=== PATIENT | female | born 1960 | race Caucasian/White ===

== ENCOUNTER 2019-05-24 06:59 | Inpatient (IN) | payer MEDICAID, MEDICARE ==
[~2019-05-24] VITALS: Ht 162.6 cm; Wt 65.0 kg
[2019-05-24] MEDS ORDERED: SODIUM CHLORIDE 0.9% 1,000 ML IV ONE (07:20)
--- NOTE | 2019-05-24 07:20 | NUR ---
PT BIB ED FROM [place]. PT WAS AT [facility] YESTERDAY AND WENT AMA. CALLED [facility] AT 0200 THIS MORNING AFTER FEELING WORSE. PT HAD LACTIC OF 2.8 YESTERDAY, WAS FOUND TO BE 4.1 TODAY. [facility] STATES PT DIAGNOSED WITH SEPTIC C-DIFF AT [facility]. PT STATES SHE IS WEAK, HAS N/V/D FOR THE PAST FEW DAYS. PT HAS HX C-DIFF 3 WEEKS AGO. PT STATES SHE HAS PAIN IN HER ABDOMEN RADIATING TO HER BACK THAT IS 8-9/10 NOW. AT BEDSIDE TO EVALUATE PT. PT TACHYCARDIC. BP 106/55 RR EVEN AND UNLABORED. PT ON 3LNC AT HOME AT ALL TIMES. PT HAS FEVER OF 101.3, AWARE OF LIKELY SEPSIS. PT REQUESTING SOMETHING TO DRINK. PT LAYING ON GURNEY. CALL LIGHT IN REACH.
[2019-05-24] MEDS ORDERED: ACETAMINOPHEN 325 MG TABLET ONE (07:28)
[2019-05-24] MEDS ORDERED: MORPHINE SULFATE 4 MG/ML, 1ML ONE (07:28)
[2019-05-24] MEDS ORDERED: ONDANSETRON 2MG/ML, 2ML ONE (07:28)
[2019-05-24] MEDS ORDERED: MORPHINE SULFATE 4 MG/ML, 1ML IVPush PRN (07:30)
[2019-05-24] MEDS ORDERED: ONDANSETRON 2MG/ML, 2ML IVPush ONE (07:30)
[2019-05-24] MEDS ORDERED: ACETAMINOPHEN 325 MG TABLET PO ONE (07:30)
[2019-05-24] MEDS ORDERED: SODIUM CHLORIDE 0.9% 1,000ML IVBOLUS ONE (07:30)
[2019-05-24] MEDS ORDERED: SODIUM CHLORIDE FLUSH 10ML SYR IVF ONE (07:30)
--- NOTE | 2019-05-24 07:54 | NUR ---
PT MEDICATED PER EMAR. CDIFF SAMPLE COLLECTED. LAB AT BEDSIDE DRAWING BLOOD. PT TEARY AND ANXIOUS. PER [facility], PT GIVEN FLAGYL, ZOSYN, MAGNESIUM, FENTANYL, AND ATIVAN AT [place]. AWARE. PT RESTING ON GURNEY. VSS.
--- NOTE | 2019-05-24 07:56 | NUR ---
PT GIVEN 2 L NS AND 1L LR AXLE AND FRAME MECHANIC.
[2019-05-24] MEDS ORDERED: SODIUM CHLORIDE FLUSH 10ML SYR IVF PRN (08:00)
[2019-05-24 08:30] LABS: ALANINE AMINOTRANSFERASE 60 U/L (12-78); ALBUMIN 2.3 g/dL (3.4-5.0); ANION GAP 14 mmol/L (5-15); CALCIUM 6.5 mg/dL (8.5-10.1); CHLORIDE 113 mmol/L (98-107); CREATININE 0.82 mg/dL (0.55-1.02)
[2019-05-24] MEDS ORDERED: PLEASE ENTER ALLERGIES MC SCH (08:30)
[2019-05-24 08:32] LABS: ALKALINE PHOSPHATASE 262 U/L (45-117); BILIRUBIN,TOTAL 0.8 mg/dL (0.2-1.0); TOTAL PROTEIN 5.4 g/dL (6.4-8.2)
[2019-05-24] MEDS ORDERED: SODIUM CHLORIDE 0.9% 1,000 ML IV SCH (08:40)
[2019-05-24] MEDS ORDERED: CEFTRIAXONE PMX 1GM/50ML 50 ML ONE (08:43)
[2019-05-24] MEDS ORDERED: METRONIDAZOLE PMX 500MG/100ML 100 ML ONE (08:43)
[2019-05-24] MEDS: CEFTRIAXONE PMX 1GM/50ML 50 ML IV SCH (08:49)
[2019-05-24 08:53] LABS: MEAN CORPUSCULAR HEMOGLOBIN 33.6 pg (27.0-34.8); MEAN CORPUSCULAR HGB CONC 32.3 g/dL (32.4-35.8); MEAN CORPUSCULAR VOLUME 103.9 fL (80-100); RED BLOOD COUNT 2.57 x10^6/uL (3.82-5.3); RED CELL DISTRIBUTION WIDTH 19.7 % (9.6-15.2)
[2019-05-24 08:54] LABS: CLOSTRIDIUM DIFFICILE ANTIGEN NEGATIVE; CLOSTRIDIUM DIFFICILE TOXIN NEGATIVE (Negative)
[2019-05-24 08:57] LABS: PLATELET COUNT 87 x10^3/uL (130-400)
[2019-05-24 08:58] LABS: MEAN PLATELET VOLUME 7.7 fL (7.4-10.4)
--- NOTE | 2019-05-24 08:59 | NUR ---
PT MEDICATED PER EMAR. [facility] AT BEDSIDE TO EVALUATE PT. PT HYPOTENSIVE. FLUIDS RUNNING. PT PROVIDED WITH WATER. PT LAYING ON GURNEY.
[2019-05-24] MEDS ORDERED: ONDANSETRON 2MG/ML, 2ML IVPush PRN (09:00)
[2019-05-24] MEDS ORDERED: POTASSIUM CHLORIDE 20 MEQ TAB.ER.PRT PO ONE (09:00)
[2019-05-24] MEDS ORDERED: ONDANSETRON ODT 4 MG PO PRN (09:00)
[2019-05-24] MEDS ORDERED: ACETAMINOPHEN 325 MG TABLET PO PRN (09:00)
[2019-05-24] MEDS ORDERED: HYDROcodone/APAP 5/325 TABLET PO PRN (09:00)
[2019-05-24 09:20] LABS: MD YES
[2019-05-24] MEDS ORDERED: METO25TA91 PO (09:20)
[2019-05-24] MEDS ORDERED: FURO-93 PO (09:20)
[2019-05-24] MEDS ORDERED: THIA100T67 PO (09:20)
[2019-05-24] MEDS ORDERED: HYDR-826 PO (09:20)
[2019-05-24] MEDS ORDERED: LEVO500T8 PO (09:20)
[2019-05-24] MEDS ORDERED: ONDA4TAB7 PO (09:20)
[2019-05-24] MEDS ORDERED: POTA20TA89 PO (09:20)
[2019-05-24] MEDS ORDERED: PRED20TA PO (09:20)
[2019-05-24] MEDS ORDERED: RANI150C PO (09:20)
[2019-05-24] MEDS ORDERED: PANT40TA3 PO (09:20)
[2019-05-24 09:21] LABS: BAND#(MANUAL) 0.47 x10^3/uL; BANDS%(MANUAL) 11 % (0-7); LYMPH#(MANUAL) 0.34 x10^3/uL (1-3.4); LYMPHS% (MANUAL) 8 % (22-44); MONOS#(MANUAL) 0.39 x10^3/uL (0.3-2.7); MONOS% (MANUAL) 9 % (2-9); SEGS% (MANUAL) 72 % (42-75)
[2019-05-24 09:23] LABS: <PLATELET ESTIMATE> DECREASED; <PLT MORPHOLOGY> NORMAL PLT MORPH; ANISOCYTOSIS 1+
[2019-05-24] MEDS: METRONIDAZOLE PMX 500MG/100ML 100 ML IV SCH ×2 (09:30→17:24)
--- NOTE | 2019-05-24 09:33 | NUR ---
THIS RN CALLED [facility] MONICA TO LET HER KNOW PT'S BP IS CONTINUING TO BE LOW AFTER 4L NS AND 1L LR BETWEEN HERE AND [place]. [facility] ASKED THAT ER MD BE ASKED TO CONSULT ICU [facility]. PT RESTING IN BED CONTINUING TO REQUEST BLANKETS AND ICE WATER.
--- NOTE | 2019-05-24 09:58 | NUR ---
THIS RN ASKED MD WHAT DR. LEOS SAID REGARDING NEED FOR PRESSORS. STATES ICU SM SAID ALBUMIN SHOULD BE GIVEN NOW AND EVERY 8 HOURS AND NO ICU.
[2019-05-24] MEDS ORDERED: ALBUMIN HUMAN 25% 100 ML IV ONE (10:00)
--- NOTE | 2019-05-24 10:09 | NUR ---
SPOKE W/ ERP DR. DOWNS IN REGARDS TO PT BP REMAINING 90/41 AFTER RECEIVING 4L NS AND 1 L LR IN TOTAL. PER ERP SPOKE W/ DR. LEOS WHO STATES NO NEED FOR PRESSORS AT THIS TIME AND TO GIVE PT ALBUMIN NOW. CLOSE OBSERVATION ON PT AND VS.
--- NOTE | 2019-05-24 10:16 | NUR ---
PT GIVEN EMESIS BAG PER REQUEST. PT MOVED ONTO RIGHT SIDE, STATES HER STOMACH AND BACK STILL HURT, ASKING FOR PAIN MEDS. PT UPDATED ON POC TO GO UPSTAIRS. PT HYPOTENSIVE. WILL ALERT MD.
--- NOTE | 2019-05-24 10:24 | NUR ---
REPORT GIVEN TO MILAGROS CARBONE ON TELE2. PT MEDICATED PER EMAR AT THIS TIME.
[2019-05-24] MEDS: POTASSIUM CHLORIDE 20 MEQ in LACTATED RINGERS 1,000 ML IV SCH ×2 (10:30→17:25)
[2019-05-24] MEDS ORDERED: PANTOPRAZOLE 40 MG IV ONE (10:31)
[2019-05-24] MEDS ORDERED: POTASSIUM CHLORIDE 20 MEQ TAB.ER.PRT ONE (10:31)
[2019-05-24] MEDS ORDERED: NICOTINE 21 MG/24 HR PATCH.TD24 ONE (10:31)
[2019-05-24] MEDS ORDERED: ENOXAPARIN 40 MG/0.4 ML ONE (10:31)
[2019-05-24] MEDS: PANTOPRAZOLE 40 MG IV IVPush SCH (10:33)
[2019-05-24] MEDS: NICOTINE 21 MG/24 HR PATCH.TD24 TD SCH (10:33)
[2019-05-24] MEDS: ENOXAPARIN 40 MG/0.4 ML SQ SCH (10:33)
--- NOTE | 2019-05-24 10:34 | NUR ---
PT BP NOTED TO BE 89/44 ON R ARM PER ERP REQUEST. ERP NOTIFIED ABOUT BP AND ALBUMIN INITIATED.
[2019-05-24 11:28] VITALS: BP 84/53
[2019-05-24] MEDS ORDERED: MAGNESIUM SULFATE PMX 2GM/50ML 50 ML IV ONE ×2 (12:00→14:30)
[2019-05-24 12:20] VITALS: BP 95/60
[2019-05-24 13:34] VITALS: BP 104/70
[2019-05-24] MEDS: MORPHINE SULFATE 4 MG/ML, 1ML IVPush PRN ×3 (13:40→21:19)
[2019-05-24 13:46] LABS: TROPONIN I < 0.015 ng/mL (0.000-0.045)
[2019-05-24 14:07] LABS: MICROSCOPIC AUTO
[2019-05-24 14:13] LABS: CULTURE INDICATED? YES
[2019-05-24] MEDS: ALBUMIN HUMAN 25% 100 ML IV SCH (18:00)
[2019-05-24 18:38] VITALS: BP 101/67
[2019-05-24 19:06] LABS: TROPONIN I < 0.015 ng/mL (0.000-0.045)
[2019-05-24] MEDS: DIPHENOXYLATE/ATROPINE TABLET PO PRN (22:15)
[2019-05-25 00:26] VITALS: BP 106/60
[2019-05-25] MEDS: METRONIDAZOLE PMX 500MG/100ML 100 ML IV SCH ×3 (00:27→16:25)
[2019-05-25] MEDS: MORPHINE SULFATE 4 MG/ML, 1ML IVPush PRN ×7 (00:27→23:10)
[2019-05-25] MEDS: ALBUMIN HUMAN 25% 100 ML IV SCH (01:59)
[2019-05-25] MEDS: POTASSIUM CHLORIDE 20 MEQ in LACTATED RINGERS 1,000 ML IV SCH ×3 (01:59→22:50)
[2019-05-25] MEDS: DIPHENOXYLATE/ATROPINE TABLET PO PRN ×3 (04:52→20:09)
[2019-05-25 05:19] LABS: MEAN CORPUSCULAR HEMOGLOBIN 33.8 pg (27.0-34.8); MEAN CORPUSCULAR HGB CONC 32.2 g/dL (32.4-35.8); MEAN CORPUSCULAR VOLUME 104.9 fL (80-100); MEAN PLATELET VOLUME 7.9 fL (7.4-10.4); PLATELET COUNT 75 x10^3/uL (130-400); RED BLOOD COUNT 2.42 x10^6/uL (3.82-5.3); RED CELL DISTRIBUTION WIDTH 19.5 % (9.6-15.2)
[2019-05-25 05:25] LABS: CHLORIDE 111 mmol/L (98-107)
[2019-05-25 05:38] LABS: ALANINE AMINOTRANSFERASE 55 U/L (12-78); ALKALINE PHOSPHATASE 198 U/L (45-117); ANION GAP 9 mmol/L (5-15); BILIRUBIN,TOTAL 1.9 mg/dL (0.2-1.0); CALCIUM 6.7 mg/dL (8.5-10.1); CREATININE 0.72 mg/dL (0.55-1.02); FREE T4 (FREE THYROXINE) 1.08 ng/dL (0.76-1.46); TOTAL PROTEIN 5.5 g/dL (6.4-8.2)
[2019-05-25] MEDS ORDERED: ALBUTEROL SULFATE 2.5 MG/3 ML ONE (06:01)
[2019-05-25 06:07] LABS: MD YES
[2019-05-25 06:10] LABS: BAND#(MANUAL) 0.74 x10^3/uL; BANDS%(MANUAL) 12 % (0-7); BASOS#(MANUAL) 0.06 x10^3/uL (0-0.1); BASOS% (MANUAL) 1 % (0-1); LYMPH#(MANUAL) 1.18 x10^3/uL (1-3.4); LYMPHS% (MANUAL) 19 % (22-44); MONOS#(MANUAL) 0.37 x10^3/uL (0.3-2.7); MONOS% (MANUAL) 6 % (2-9); SEG#(MANUAL) 3.84 x10^3/uL (1.8-6.8); SEGS% (MANUAL) 62 % (42-75)
[2019-05-25 06:12] LABS: ANISOCYTOSIS 1+; PMNS WITH VACUOLES 2+; TOXIC GRAN 1+
[2019-05-25 06:13] LABS: <PLATELET ESTIMATE> DECREASED; <PLT MORPHOLOGY> NORMAL PLT MORPH
[2019-05-25 07:06] VITALS: BP 109/71
[2019-05-25] MEDS: PANTOPRAZOLE 40 MG IV IVPush SCH (08:52)
[2019-05-25] MEDS: NICOTINE 21 MG/24 HR PATCH.TD24 TD SCH (08:52)
[2019-05-25] MEDS ORDERED: MAGNESIUM SULFATE PMX 2GM/50ML 50 ML IV ONE (09:30)
[2019-05-25] MEDS: ENOXAPARIN 40 MG/0.4 ML SQ SCH (10:44)
[2019-05-25] MEDS: CEFTRIAXONE PMX 1GM/50ML 50 ML IV SCH (10:44)
[2019-05-25] MEDS: NEUTRA PHOS K 250 MG TABLET PO SCH ×3 (10:50→20:09)
[2019-05-25 12:24] LABS: CLOSTRIDIUM DIFFICILE ANTIGEN NEGATIVE; CLOSTRIDIUM DIFFICILE TOXIN NEGATIVE (Negative); CRYPTOSPORIDIUM ANTIGEN Negative (Negative)
[2019-05-25 15:35] VITALS: BP 105/73
[2019-05-25 20:29] VITALS: BP 116/62
[2019-05-26] MEDS: METRONIDAZOLE PMX 500MG/100ML 100 ML IV SCH ×3 (00:40→17:24)
[2019-05-26 00:50] VITALS: BP 100/64
[2019-05-26] MEDS: MORPHINE SULFATE 4 MG/ML, 1ML IVPush PRN ×5 (03:17→23:56)
[2019-05-26 05:38] LABS: ALBUMIN 2.8 g/dL (3.4-5.0); ANION GAP 10 mmol/L (5-15); CALCIUM 7.4 mg/dL (8.5-10.1); CHLORIDE 110 mmol/L (98-107)
[2019-05-26 05:41] LABS: MEAN CORPUSCULAR HEMOGLOBIN 34.4 pg (27.0-34.8); MEAN CORPUSCULAR HGB CONC 32.7 g/dL (32.4-35.8); MEAN CORPUSCULAR VOLUME 105.2 fL (80-100); RED BLOOD COUNT 2.47 x10^6/uL (3.82-5.3); RED CELL DISTRIBUTION WIDTH 19.6 % (9.6-15.2)
[2019-05-26 05:50] LABS: ALANINE AMINOTRANSFERASE 179 U/L (12-78); ALKALINE PHOSPHATASE 242 U/L (45-117); BILIRUBIN,TOTAL 2.5 mg/dL (0.2-1.0); CREATININE 0.68 mg/dL (0.55-1.02); TOTAL PROTEIN 5.4 g/dL (6.4-8.2)
[2019-05-26 06:06] LABS: MEAN PLATELET VOLUME 8.7 fL (7.4-10.4); PLATELET COUNT 73 x10^3/uL (130-400)
[2019-05-26 06:08] LABS: BASOPHILS # (AUTO) 0.01 x10^3/uL (0-0.1); BASOPHILS % (AUTO) 0 % (0-1); EOSINOPHILS % (AUTO) 0 % (1-7); LYMPHOCYTES # (AUTO) 0.91 x10^3/uL (1-3.4); LYMPHOCYTES % (AUTO) 18 % (22-44); MD SCAN; MONOCYTES # (AUTO) 0.24 x10^3/uL (0.2-0.8); MONOCYTES % (AUTO) 5 % (2-9); NEUTROPHILS % (AUTO) 78 % (42-75)
[2019-05-26] MEDS: POTASSIUM CHLORIDE 20 MEQ in LACTATED RINGERS 1,000 ML IV SCH ×2 (06:31→18:26)
[2019-05-26 07:43] VITALS: BP 108/69
[2019-05-26] MEDS: PANTOPRAZOLE 40 MG IV IVPush SCH (08:27)
[2019-05-26] MEDS: ENOXAPARIN 40 MG/0.4 ML SQ SCH (08:27)
[2019-05-26] MEDS: CEFTRIAXONE PMX 1GM/50ML 50 ML IV SCH (08:27)
[2019-05-26] MEDS: NICOTINE 21 MG/24 HR PATCH.TD24 TD SCH (08:27)
[2019-05-26] MEDS: DIPHENOXYLATE/ATROPINE TABLET PO PRN ×2 (08:30→19:35)
[2019-05-26] MEDS ORDERED: MAGNESIUM SULFATE PMX 4GM/100M 100 ML IV ONE (09:00)
[2019-05-26] MEDS ORDERED: POTASSIUM PHOSPHATE 44 MEQ in SODIUM CHLORIDE 0.9% 500 ML IV ONE (09:00)
[2019-05-26 15:26] VITALS: BP_SYST 2; BP_SYST 98; BP_DIAS 71
[2019-05-26 19:28] VITALS: BP 117/73
[2019-05-27] MEDS: METRONIDAZOLE PMX 500MG/100ML 100 ML IV SCH ×4 (00:57→23:52)
[2019-05-27] MEDS: POTASSIUM CHLORIDE 20 MEQ in LACTATED RINGERS 1,000 ML IV SCH ×2 (00:57→12:40)
[2019-05-27 01:08] VITALS: BP 107/61
[2019-05-27] MEDS: MORPHINE SULFATE 4 MG/ML, 1ML IVPush PRN ×5 (03:18→20:11)
[2019-05-27 05:53] LABS: ALANINE AMINOTRANSFERASE 192 U/L (12-78); ALBUMIN 2.9 g/dL (3.4-5.0); ANION GAP 9 mmol/L (5-15); CALCIUM 7.5 mg/dL (8.5-10.1); CHLORIDE 110 mmol/L (98-107); CREATININE 0.64 mg/dL (0.55-1.02)
[2019-05-27 05:55] LABS: ALKALINE PHOSPHATASE 321 U/L (45-117); BILIRUBIN,TOTAL 2.8 mg/dL (0.2-1.0); TOTAL PROTEIN 5.4 g/dL (6.4-8.2)
[2019-05-27 05:57] LABS: MEAN CORPUSCULAR HEMOGLOBIN 35.3 pg (27.0-34.8); MEAN CORPUSCULAR HGB CONC 33.2 g/dL (32.4-35.8); MEAN CORPUSCULAR VOLUME 106.4 fL (80-100); PLATELET COUNT 76 x10^3/uL (130-400); RED BLOOD COUNT 2.35 x10^6/uL (3.82-5.3); RED CELL DISTRIBUTION WIDTH 20.4 % (9.6-15.2)
[2019-05-27 06:27] LABS: BASOPHILS # (AUTO) 0.01 x10^3/uL (0-0.1); BASOPHILS % (AUTO) 0 % (0-1); EOSINOPHILS % (AUTO) 0 % (1-7); LYMPHOCYTES # (AUTO) 0.92 x10^3/uL (1-3.4); LYMPHOCYTES % (AUTO) 21 % (22-44); MD SCAN; MONOCYTES # (AUTO) 0.54 x10^3/uL (0.2-0.8); MONOCYTES % (AUTO) 12 % (2-9); NEUTROPHILS # (AUTO) 2.92 x10^3/uL (1.8-6.8); NEUTROPHILS % (AUTO) 67 % (42-75)
[2019-05-27] MEDS ORDERED: POTASSIUM PHOSPHATE 44 MEQ in SODIUM CHLORIDE 0.9% 500 ML IV ONE (07:00)
[2019-05-27] MEDS ORDERED: MAGNESIUM SULFATE PMX 2GM/50ML 50 ML IV ONE (07:00)
[2019-05-27] MEDS: NICOTINE 21 MG/24 HR PATCH.TD24 TD SCH (08:22)
[2019-05-27] MEDS: DIPHENOXYLATE/ATROPINE TABLET PO PRN (08:24)
[2019-05-27] MEDS: PANTOPRAZOLE 40 MG IV IVPush SCH (08:25)
[2019-05-27] MEDS: ENOXAPARIN 40 MG/0.4 ML SQ SCH (08:26)
[2019-05-27] MEDS ORDERED: IBUPROFEN 200 MG TABLET ONE (08:33)
[2019-05-27 08:34] VITALS: BP 103/68
[2019-05-27] MEDS ORDERED: IBUPROFEN 200 MG TABLET PO PRN (09:00)
[2019-05-27] MEDS: CEFTRIAXONE PMX 1GM/50ML 50 ML IV SCH (09:50)
[2019-05-27] MEDS: ALBUTEROL SULFATE 2.5 MG/3 ML NPPB PRN (10:55)
[2019-05-27 16:00] VITALS: BP 121/85
[2019-05-27] MEDS: BENZOCAINE 20% SPRAY 0.5ML TP PRN ×2 (16:20→20:11)
[2019-05-27] MEDS ORDERED: OMNIPAQUE 350 MG/ML, 100ML BOTTLE ONE (17:40)
[2019-05-27 19:48] VITALS: BP 100/67
[2019-05-27] MEDS: KETOROLAC 30 MG/1 ML IV PRN (23:22)
[2019-05-28 01:08] VITALS: BP 132/84
[2019-05-28] MEDS: MORPHINE SULFATE 4 MG/ML, 1ML IVPush PRN ×2 (01:57→05:23)
[2019-05-28 06:27] LABS: MEAN CORPUSCULAR HGB CONC 32.6 g/dL (32.4-35.8); MEAN CORPUSCULAR VOLUME 107.4 fL (80-100); PLATELET COUNT 86 x10^3/uL (130-400); RED BLOOD COUNT 2.44 x10^6/uL (3.82-5.3); RED CELL DISTRIBUTION WIDTH 20.2 % (9.6-15.2)
[2019-05-28 06:32] LABS: ALBUMIN 2.6 g/dL (3.4-5.0); ANION GAP 9 mmol/L (5-15); CALCIUM 7.7 mg/dL (8.5-10.1); CHLORIDE 110 mmol/L (98-107)
[2019-05-28 06:35] VITALS: BP 107/72
[2019-05-28 06:35] LABS: ALANINE AMINOTRANSFERASE 135 U/L (12-78); ALKALINE PHOSPHATASE 306 U/L (45-117); BILIRUBIN,TOTAL 3.4 mg/dL (0.2-1.0); CREATININE 0.63 mg/dL (0.55-1.02); TOTAL PROTEIN 5.3 g/dL (6.4-8.2)
[2019-05-28 07:54] LABS: BASOPHILS # (AUTO) 0.01 x10^3/uL (0-0.1); BASOPHILS % (AUTO) 0 % (0-1); EOSINOPHILS % (AUTO) 0 % (1-7); LYMPHOCYTES # (AUTO) 0.75 x10^3/uL (1-3.4); LYMPHOCYTES % (AUTO) 17 % (22-44); MD SCAN; MONOCYTES # (AUTO) 0.64 x10^3/uL (0.2-0.8); MONOCYTES % (AUTO) 15 % (2-9); NEUTROPHILS # (AUTO) 2.91 x10^3/uL (1.8-6.8); NEUTROPHILS % (AUTO) 68 % (42-75)
[2019-05-28] MEDS: METRONIDAZOLE PMX 500MG/100ML 100 ML IV SCH ×3 (10:26→21:46)
[2019-05-28] MEDS: PANTOPRAZOLE 40 MG IV IVPush SCH (10:26)
[2019-05-28] MEDS: ENOXAPARIN 40 MG/0.4 ML SQ SCH (10:27)
[2019-05-28] MEDS: NICOTINE 21 MG/24 HR PATCH.TD24 TD SCH (10:27)
[2019-05-28] MEDS: CEFTRIAXONE PMX 1GM/50ML 50 ML IV SCH (11:25)
[2019-05-28] MEDS ORDERED: MAGNESIUM SULFATE PMX 2GM/50ML 50 ML IV ONE (12:30)
[2019-05-28] MEDS: NEUTRA PHOS K 250 MG TABLET PO SCH ×3 (12:30→20:24)
[2019-05-28] MEDS: KETOROLAC 30 MG/1 ML IV PRN ×2 (13:09→21:45)
--- NOTE | 2019-05-28 14:26 | NUR ---
TF Goal: Promote @55mL/hour.
[2019-05-28 15:00] VITALS: BP 105/68
[2019-05-28] MEDS ORDERED: LORazepam 2 MG/ML, 1ML IVPush ONE (19:30)
[2019-05-28 19:58] VITALS: BP 122/82
[2019-05-29] MEDS ORDERED: LORazepam 2 MG/ML, 1ML IVPush ONE (02:00)
[2019-05-29] MEDS ORDERED: ZIPRASIDONE 20 MG INJ IM ONE (02:30)
[2019-05-29 05:26] LABS: MEAN CORPUSCULAR HEMOGLOBIN 35.1 pg (27.0-34.8); MEAN CORPUSCULAR VOLUME 106.2 fL (80-100); MEAN PLATELET VOLUME 9.2 fL (7.4-10.4); PLATELET COUNT 120 x10^3/uL (130-400); RED BLOOD COUNT 2.39 x10^6/uL (3.82-5.3); RED CELL DISTRIBUTION WIDTH 20.4 % (9.6-15.2)
[2019-05-29 05:35] LABS: ALANINE AMINOTRANSFERASE 97 U/L (12-78); ALBUMIN 2.5 g/dL (3.4-5.0); ANION GAP 10 mmol/L (5-15); CALCIUM 7.7 mg/dL (8.5-10.1); CHLORIDE 114 mmol/L (98-107)
[2019-05-29 05:37] LABS: ALKALINE PHOSPHATASE 328 U/L (45-117); BILIRUBIN,TOTAL 2.9 mg/dL (0.2-1.0); TOTAL PROTEIN 5.1 g/dL (6.4-8.2)
[2019-05-29 05:52] LABS: BASOPHILS # (AUTO) 0.02 x10^3/uL (0-0.1); BASOPHILS % (AUTO) 1 % (0-1); EOSINOPHILS # (AUTO) 0.02 x10^3/uL (0-0.4); EOSINOPHILS % (AUTO) 1 % (1-7); LYMPHOCYTES # (AUTO) 0.74 x10^3/uL (1-3.4); LYMPHOCYTES % (AUTO) 20 % (22-44); MD SCAN; MONOCYTES # (AUTO) 0.61 x10^3/uL (0.2-0.8); MONOCYTES % (AUTO) 16 % (2-9); NEUTROPHILS # (AUTO) 2.36 x10^3/uL (1.8-6.8); NEUTROPHILS % (AUTO) 63 % (42-75)
[2019-05-29] MEDS: THIAMINE 100MG TABLET PO SCH (09:00)
[2019-05-29] MEDS ORDERED: METOPROLOL SUCCINATE 25 MG TAB.ER.24H PO SCH (09:00)
[2019-05-29] MEDS: PANTOPROZOLE 40MG TABLET PO SCH (09:00)
[2019-05-29] MEDS: FOLIC ACID 1 MG TABLET PO SCH (09:00)
[2019-05-29] MEDS: NEUTRA PHOS K 250 MG TABLET PO SCH ×3 (09:00→20:43)
[2019-05-29] MEDS: METOPROLOL SUCCINATE 25 MG TAB.ER.24H PO SCH (09:00)
[2019-05-29] MEDS: NICOTINE 21 MG/24 HR PATCH.TD24 TD SCH (09:01)
[2019-05-29] MEDS: KETOROLAC 30 MG/1 ML IV PRN (09:01)
[2019-05-29] MEDS: METRONIDAZOLE PMX 500MG/100ML 100 ML IV SCH (09:01)
[2019-05-29] MEDS: ENOXAPARIN 40 MG/0.4 ML SQ SCH (09:01)
[2019-05-29] MEDS ORDERED: MAGNESIUM SULFATE PMX 2GM/50ML 50 ML IV ONE (11:00)
[2019-05-29 13:18] VITALS: BP 126/78
[2019-05-29] MEDS: DIPHENOXYLATE/ATROPINE TABLET PO PRN ×2 (13:42→20:44)
[2019-05-29] MEDS: MORPHINE SULFATE 4 MG/ML, 1ML IVPush PRN ×3 (14:31→22:29)
[2019-05-29] MEDS: metroNIDAZOLE 500 MG TABLET PO SCH ×2 (16:30→20:43)
[2019-05-29] MEDS: DEXTROSE 5% 1,000 ML IV SCH (16:31)
[2019-05-29 20:09] VITALS: BP 114/70
[2019-05-29] MEDS: CIPROFLOXACIN 500 MG TABLET PO SCH (20:43)
[2019-05-29] MEDS ORDERED: MAGNESIUM OXIDE 400 MG TABLET PO SCH (21:00)
[2019-05-30] MEDS: MORPHINE SULFATE 4 MG/ML, 1ML IVPush PRN ×5 (02:46→21:21)
[2019-05-30] MEDS: DIPHENOXYLATE/ATROPINE TABLET PO PRN ×3 (02:58→21:29)
[2019-05-30 03:01] VITALS: BP 133/84
[2019-05-30] MEDS: DEXTROSE 5% 1,000 ML IV SCH (04:09)
[2019-05-30 05:44] LABS: CHLORIDE 109 mmol/L (98-107); MEAN CORPUSCULAR HEMOGLOBIN 34.2 pg (27.0-34.8); MEAN CORPUSCULAR HGB CONC 32.1 g/dL (32.4-35.8); MEAN CORPUSCULAR VOLUME 106.5 fL (80-100); MEAN PLATELET VOLUME 8.5 fL (7.4-10.4); PLATELET COUNT 185 x10^3/uL (130-400); RED BLOOD COUNT 2.54 x10^6/uL (3.82-5.3); RED CELL DISTRIBUTION WIDTH 20.4 % (9.6-15.2)
[2019-05-30 05:52] LABS: ALANINE AMINOTRANSFERASE 76 U/L (12-78); ALBUMIN 2.5 g/dL (3.4-5.0); ALKALINE PHOSPHATASE 332 U/L (45-117); ANION GAP 9 mmol/L (5-15); BILIRUBIN,TOTAL 2.7 mg/dL (0.2-1.0); CALCIUM 7.7 mg/dL (8.5-10.1); CREATININE 0.67 mg/dL (0.55-1.02); TOTAL PROTEIN 5.2 g/dL (6.4-8.2)
[2019-05-30 06:24] LABS: BASOPHILS # (AUTO) 0.02 x10^3/uL (0-0.1); BASOPHILS % (AUTO) 0 % (0-1); EOSINOPHILS % (AUTO) 0 % (1-7); LYMPHOCYTES # (AUTO) 0.95 x10^3/uL (1-3.4); LYMPHOCYTES % (AUTO) 25 % (22-44); MD SCAN; MONOCYTES % (AUTO) 10 % (2-9); NEUTROPHILS # (AUTO) 2.47 x10^3/uL (1.8-6.8); NEUTROPHILS % (AUTO) 64 % (42-75)
[2019-05-30 06:40] VITALS: BP 145/91
[2019-05-30] MEDS ORDERED: POTASSIUM CHLORIDE 20 MEQ TAB.ER.PRT PO ONE (08:00)
[2019-05-30] MEDS: FOLIC ACID 1 MG TABLET PO SCH (10:07)
[2019-05-30] MEDS: CIPROFLOXACIN 500 MG TABLET PO SCH ×2 (10:07→21:03)
[2019-05-30] MEDS: PANTOPROZOLE 40MG TABLET PO SCH (10:07)
[2019-05-30] MEDS: LACTOBACILLUS CHEW TABLET PO SCH ×3 (10:07→21:03)
[2019-05-30] MEDS: metroNIDAZOLE 500 MG TABLET PO SCH ×3 (10:07→21:03)
[2019-05-30] MEDS: THIAMINE 100MG TABLET PO SCH (10:07)
[2019-05-30] MEDS: METOPROLOL SUCCINATE 25 MG TAB.ER.24H PO SCH (10:09)
[2019-05-30] MEDS: ENOXAPARIN 40 MG/0.4 ML SQ SCH (10:09)
[2019-05-30] MEDS: NICOTINE 21 MG/24 HR PATCH.TD24 TD SCH (10:10)
[2019-05-30] MEDS: SODIUM CHLORIDE 0.9% 1,000 ML IV SCH (11:53)
[2019-05-30] MEDS ORDERED: ACETAMINOPHEN 325 MG TABLET PO PRN (12:30)
[2019-05-30] MEDS ORDERED: ONDANSETRON 2MG/ML, 2ML IVPush PRN (12:30)
[2019-05-30] MEDS ORDERED: OXYcodone IR 5MG TABLET PO PRN ×2 (12:30→18:30)
[2019-05-30] MEDS ORDERED: ONDANSETRON ODT 4 MG ONE (12:44)
[2019-05-30] MEDS: ONDANSETRON ODT 4 MG PO PRN (12:45)
[2019-05-30 12:46] VITALS: BP 108/75
[2019-05-30] MEDS: OXYcodone IR 5MG TABLET PO PRN ×2 (15:27→23:10)
[2019-05-30 20:13] VITALS: BP 129/81
[2019-05-30 22:45] LABS: OCCULT BLOOD NEGATIVE (NEGATIVE)
[2019-05-31 02:45] VITALS: BP 115/73
[2019-05-31] MEDS: SODIUM CHLORIDE 0.9% 1,000 ML IV SCH (03:16)
[2019-05-31] MEDS: MORPHINE SULFATE 4 MG/ML, 1ML IVPush PRN ×4 (04:43→19:01)
[2019-05-31 05:33] LABS: % IRON SATURATION 28 % (20-55); IRON LEVEL 31 mcg/dL (50-170); TOTAL IRON BINDING CAPACITY 112 mcg/dL (250-450)
[2019-05-31 07:15] VITALS: BP 118/74
[2019-05-31] MEDS ORDERED: PROPOFOL 10 MG/ML, 20ML ONE (07:32)
[2019-05-31] MEDS: ENOXAPARIN 40 MG/0.4 ML SQ SCH (07:47)
[2019-05-31 09:30] VITALS: BP 126/78
[2019-05-31] MEDS: ALBUTEROL SULFATE 2.5 MG/3 ML NPPB PRN (10:00)
[2019-05-31] MEDS: DIPHENOXYLATE/ATROPINE TABLET PO PRN (10:17)
[2019-05-31] MEDS: FOLIC ACID 1 MG TABLET PO SCH (10:17)
[2019-05-31] MEDS: METOPROLOL SUCCINATE 25 MG TAB.ER.24H PO SCH (10:17)
[2019-05-31] MEDS: THIAMINE 100MG TABLET PO SCH (10:17)
[2019-05-31] MEDS: NICOTINE 21 MG/24 HR PATCH.TD24 TD SCH (10:17)
[2019-05-31] MEDS: metroNIDAZOLE 500 MG TABLET PO SCH ×3 (10:17→20:10)
[2019-05-31] MEDS: PANTOPROZOLE 40MG TABLET PO SCH (10:17)
[2019-05-31] MEDS: SUCRALFATE 1 GM/10 ML UDC PO SCH ×3 (10:17→20:11)
[2019-05-31] MEDS: LACTOBACILLUS CHEW TABLET PO SCH ×3 (10:17→20:10)
[2019-05-31] MEDS: CIPROFLOXACIN 500 MG TABLET PO SCH ×2 (10:18→20:10)
[2019-05-31] MEDS: ONDANSETRON ODT 4 MG PO PRN (10:29)
[2019-05-31] MEDS: HALOPERIDOL 5 MG/ML IV PRN ×3 (11:42→20:31)
[2019-05-31] MEDS: OXYcodone IR 5MG TABLET PO PRN ×2 (12:32→21:57)
[2019-05-31 13:30] VITALS: BP 111/73
[2019-05-31] MEDS: DIPHENOXYLATE/ATROPINE TABLET PO SCH ×2 (15:29→20:11)
[2019-05-31 18:55] VITALS: BP 127/86
[2019-06-01 00:16] VITALS: BP 107/68
[2019-06-01] MEDS ORDERED: DIPHENHYDRAMINE 50 MG CAPSULE ONE (00:31)
[2019-06-01] MEDS: MORPHINE SULFATE 4 MG/ML, 1ML IVPush PRN ×5 (00:34→20:37)
[2019-06-01] MEDS ORDERED: DIPHENHYDRAMINE 50 MG CAPSULE PO ONE (01:00)
[2019-06-01] MEDS: OXYcodone IR 5MG TABLET PO PRN ×2 (04:24→14:58)
[2019-06-01] MEDS: DIPHENOXYLATE/ATROPINE TABLET PO SCH (06:16)
[2019-06-01] MEDS: HALOPERIDOL 5 MG/ML IV PRN ×3 (06:28→19:56)
[2019-06-01 06:41] VITALS: BP 110/57
[2019-06-01] MEDS ORDERED: ACETAMINOPHEN 325 MG TABLET PO PRN (08:00)
[2019-06-01] MEDS: PANTOPROZOLE 40MG TABLET PO SCH (08:08)
[2019-06-01] MEDS: ENOXAPARIN 40 MG/0.4 ML SQ SCH (08:08)
[2019-06-01] MEDS: LACTOBACILLUS CHEW TABLET PO SCH ×3 (08:08→20:39)
[2019-06-01] MEDS: metroNIDAZOLE 500 MG TABLET PO SCH (08:08)
[2019-06-01] MEDS: METOPROLOL SUCCINATE 25 MG TAB.ER.24H PO SCH (08:08)
[2019-06-01] MEDS: SUCRALFATE 1 GM/10 ML UDC PO SCH ×4 (08:09→20:37)
[2019-06-01] MEDS: NICOTINE 21 MG/24 HR PATCH.TD24 TD SCH (08:09)
[2019-06-01] MEDS: CHOLESTYRAMINE LIGHT 4GM PACKET PO SCH ×2 (08:09→20:37)
[2019-06-01] MEDS: SODIUM CHLORIDE 0.9% 1,000 ML IV SCH (08:10)
[2019-06-01] MEDS: CIPROFLOXACIN 500 MG TABLET PO SCH (08:10)
[2019-06-01] MEDS: THIAMINE 100MG TABLET PO SCH (08:10)
[2019-06-01] MEDS: FOLIC ACID 1 MG TABLET PO SCH (08:10)
[2019-06-01] MEDS: DIPHENOXYLATE/ATROPINE TABLET PO PRN ×3 (11:13→22:15)
[2019-06-01 12:18] VITALS: BP 123/83
[2019-06-01 20:02] VITALS: BP 133/81
[2019-06-02 00:41] VITALS: BP 126/80
[2019-06-02] MEDS: SODIUM CHLORIDE 0.9% 1,000 ML IV SCH ×2 (00:43→18:35)
[2019-06-02] MEDS: MORPHINE SULFATE 4 MG/ML, 1ML IVPush PRN ×5 (00:55→23:03)
[2019-06-02] MEDS: HALOPERIDOL 5 MG/ML IV PRN ×4 (02:35→21:48)
[2019-06-02] MEDS: OXYcodone IR 5MG TABLET PO PRN ×3 (05:47→20:07)
[2019-06-02 06:15] LABS: ANION GAP 7 mmol/L (5-15); CALCIUM 7.7 mg/dL (8.5-10.1); CHLORIDE 111 mmol/L (98-107); CREATININE 0.64 mg/dL (0.55-1.02)
[2019-06-02 07:19] VITALS: BP 125/68
[2019-06-02] MEDS: SUCRALFATE 1 GM/10 ML UDC PO SCH ×4 (09:14→20:06)
[2019-06-02] MEDS: ENOXAPARIN 40 MG/0.4 ML SQ SCH (09:15)
[2019-06-02] MEDS: DIPHENOXYLATE/ATROPINE TABLET PO PRN (09:15)
[2019-06-02] MEDS: FOLIC ACID 1 MG TABLET PO SCH (09:15)
[2019-06-02] MEDS: THIAMINE 100MG TABLET PO SCH (09:15)
[2019-06-02] MEDS: NICOTINE 21 MG/24 HR PATCH.TD24 TD SCH (09:15)
[2019-06-02] MEDS: PANTOPROZOLE 40MG TABLET PO SCH (09:15)
[2019-06-02] MEDS: CHOLESTYRAMINE LIGHT 4GM PACKET PO SCH ×2 (09:15→20:07)
[2019-06-02] MEDS: LACTOBACILLUS CHEW TABLET PO SCH ×3 (09:16→20:07)
[2019-06-02 12:46] VITALS: BP 126/76
[2019-06-02] MEDS: ONDANSETRON ODT 4 MG PO PRN (14:28)
[2019-06-02] MEDS: DIPHENOXYLATE/ATROPINE TABLET PO SCH ×2 (15:27→20:07)
[2019-06-02 20:33] VITALS: BP 96/78
[2019-06-03] MEDS: OXYcodone IR 5MG TABLET PO PRN ×4 (05:04→21:42)
[2019-06-03] MEDS: DIPHENOXYLATE/ATROPINE TABLET PO SCH ×4 (05:04→21:42)
[2019-06-03 05:08] VITALS: BP 135/78
[2019-06-03 07:51] VITALS: BP 132/78
[2019-06-03] MEDS: SODIUM CHLORIDE 0.9% 1,000 ML IV SCH (08:00)
[2019-06-03] MEDS: SUCRALFATE 1 GM/10 ML UDC PO SCH ×4 (08:37→21:41)
[2019-06-03] MEDS: LACTOBACILLUS CHEW TABLET PO SCH ×3 (08:38→21:42)
[2019-06-03] MEDS: CALCIUM/VITAMIN D3 250-125 TABLET PO SCH ×2 (08:38→21:42)
[2019-06-03] MEDS: PANTOPROZOLE 40MG TABLET PO SCH (08:38)
[2019-06-03] MEDS: FOLIC ACID 1 MG TABLET PO SCH (08:39)
[2019-06-03] MEDS: CHOLESTYRAMINE LIGHT 4GM PACKET PO SCH ×2 (08:39→21:42)
[2019-06-03] MEDS: ENOXAPARIN 40 MG/0.4 ML SQ SCH (08:39)
[2019-06-03] MEDS: NICOTINE 21 MG/24 HR PATCH.TD24 TD SCH (08:40)
[2019-06-03] MEDS: MORPHINE SULFATE 4 MG/ML, 1ML IVPush PRN ×3 (08:42→18:48)
[2019-06-03] MEDS: THIAMINE 100MG TABLET PO SCH (08:51)
[2019-06-03] MEDS: HALOPERIDOL 5 MG/ML IV PRN ×2 (10:43→17:59)
[2019-06-03 12:33] VITALS: BP 143/82
[2019-06-03 19:15] VITALS: BP 135/85
[2019-06-04] MEDS: MORPHINE SULFATE 4 MG/ML, 1ML IVPush PRN ×4 (01:05→20:40)
[2019-06-04 02:26] VITALS: BP 134/82
[2019-06-04] MEDS: SODIUM CHLORIDE 0.9% 1,000 ML IV SCH ×2 (03:06→19:12)
[2019-06-04] MEDS: HALOPERIDOL 5 MG/ML IV PRN ×3 (03:12→17:31)
[2019-06-04] MEDS: DIPHENOXYLATE/ATROPINE TABLET PO SCH ×4 (05:23→20:19)
[2019-06-04] MEDS: OXYcodone IR 5MG TABLET PO PRN ×2 (05:24→23:46)
[2019-06-04] MEDS: FOLIC ACID 1 MG TABLET PO SCH (08:03)
[2019-06-04] MEDS: PANTOPROZOLE 40MG TABLET PO SCH (08:03)
[2019-06-04] MEDS: CHOLESTYRAMINE LIGHT 4GM PACKET PO SCH ×2 (08:03→20:18)
[2019-06-04] MEDS: CALCIUM/VITAMIN D3 250-125 TABLET PO SCH ×2 (08:03→20:19)
[2019-06-04] MEDS: THIAMINE 100MG TABLET PO SCH (08:03)
[2019-06-04] MEDS: LACTOBACILLUS CHEW TABLET PO SCH ×3 (08:03→20:19)
[2019-06-04] MEDS: SUCRALFATE 1 GM/10 ML UDC PO SCH ×4 (08:03→20:18)
[2019-06-04] MEDS: ENOXAPARIN 40 MG/0.4 ML SQ SCH (08:04)
[2019-06-04] MEDS: NICOTINE 21 MG/24 HR PATCH.TD24 TD SCH (08:04)
[2019-06-04 10:04] VITALS: BP 130/83
[2019-06-04] MEDS ORDERED: LOPERAMIDE 2 MG CAPSULE PO PRN (10:30)
[2019-06-04 12:28] VITALS: BP 117/73
[2019-06-04 13:10] LABS: CHLORIDE 110 mmol/L (98-107)
[2019-06-04 13:24] LABS: ANION GAP 7 mmol/L (5-15); CREATININE 0.59 mg/dL (0.55-1.02)
[2019-06-04] MEDS ORDERED: POTASSIUM CHLORIDE 20 MEQ TAB.ER.PRT PO ONE (16:30)
[2019-06-04] MEDS ORDERED: MAGNESIUM SULFATE PMX 4GM/100M 100 ML IV ONE (16:30)
[2019-06-04 20:17] VITALS: BP 147/82
[2019-06-05 04:00] VITALS: BP 124/75
[2019-06-05] MEDS: HALOPERIDOL 5 MG/ML IV PRN (04:30)
[2019-06-05] MEDS: SUCRALFATE 1 GM/10 ML UDC PO SCH ×2 (06:26→11:35)
[2019-06-05] MEDS: DIPHENOXYLATE/ATROPINE TABLET PO SCH (06:26)
[2019-06-05] MEDS: MORPHINE SULFATE 4 MG/ML, 1ML IVPush PRN (06:26)
[2019-06-05] MEDS ORDERED: DIPHENOXYLATE/ATROPINE TABLET PO PRN (08:30)
[2019-06-05] MEDS ORDERED: HALOPERIDOL 0.5 MG TABLET PO PRN (08:30)
[2019-06-05] MEDS ORDERED: HALOPERIDOL 1 MG TABLET PO PRN (08:30)
[2019-06-05] MEDS: CHOLESTYRAMINE LIGHT 4GM PACKET PO SCH (08:32)
[2019-06-05] MEDS: NICOTINE 21 MG/24 HR PATCH.TD24 TD SCH (08:33)
[2019-06-05] MEDS: ENOXAPARIN 40 MG/0.4 ML SQ SCH (08:34)
[2019-06-05] MEDS: LACTOBACILLUS CHEW TABLET PO SCH (08:35)
[2019-06-05] MEDS: THIAMINE 100MG TABLET PO SCH (08:35)
[2019-06-05] MEDS: FOLIC ACID 1 MG TABLET PO SCH (08:35)
[2019-06-05] MEDS: CALCIUM/VITAMIN D3 250-125 TABLET PO SCH (08:35)
[2019-06-05] MEDS: OXYcodone IR 5MG TABLET PO PRN ×2 (08:35→14:47)
[2019-06-05] MEDS: PANTOPROZOLE 40MG TABLET PO SCH (08:35)
[2019-06-05] MEDS: SODIUM CHLORIDE 0.9% 1,000 ML IV SCH (10:35)
[2019-06-05] MEDS ORDERED: LOPE1TAB4 PO ×2 (10:53)
[2019-06-05] MEDS ORDERED: CHOL239. PO (10:53)
[2019-06-05] MEDS ORDERED: THIA100T67 PO (10:53)
[2019-06-05] MEDS ORDERED: HALO0.5T PO (10:53)
[2019-06-05] MEDS ORDERED: NICO-487 TD (10:53)
[2019-06-05] MEDS ORDERED: CALC1TAB68 PO (10:53)
[2019-06-05] MEDS ORDERED: SUCR1ORA5 PO ×2 (10:53)
[2019-06-05] MEDS ORDERED: ACID1TAB7 PO (10:53)
[2019-06-05] MEDS ORDERED: ACET325T26 PO (10:53)
[2019-06-05 14:09] VITALS: BP 128/78
[2019-06-17] MEDS ORDERED: FURO40TA6 PO (22:34)
[2019-06-17] MEDS ORDERED: POTA8CAP20 PO (22:52)
[2019-06-17] MEDS ORDERED: TRAM50TA2 PO (22:52)
[2019-06-17] MEDS ORDERED: DIPH25CA61 PO (22:52)
[2019-06-17] MEDS ORDERED: IBUP100T6 PO (22:52)
[2019-06-17] MEDS ORDERED: METO1TAB31 PO (22:52)
[2019-06-17] MEDS ORDERED: PANT20TA2 PO (22:52)
[2019-06-17] MEDS ORDERED: PRED5TAB19 PO (22:52)
[2019-06-17] MEDS ORDERED: HYDR10TA4 PO (22:52)
[2019-06-17] MEDS ORDERED: ALBU2.5V11 NEB (22:52)
[2019-06-17] MEDS ORDERED: DIPH1TAB6 PO (22:52)
[2019-06-23] MEDS ORDERED: VANC1VIA3 PO (13:05)
[2019-06-23] MEDS ORDERED: THIA100T67 PO (13:05)
[2019-06-23] MEDS ORDERED: METO25TA35 PO (13:05)
[2019-06-23] MEDS ORDERED: SPIR25TA PO (13:05)
[2019-06-23] MEDS ORDERED: FOLI-17 PO (13:05)
[2019-07-23] MEDS ORDERED: AMIT25PO14 PO (01:40)
[2019-07-23] MEDS ORDERED: HYDR (01:40)
[2019-07-23] MEDS ORDERED: SUCR1TAB PO (01:40)
[2019-07-23] MEDS ORDERED: IBUP-1221 PO (01:40)
[2019-07-23] MEDS ORDERED: FAMO25PO2 PO (01:40)
[2019-07-23] MEDS ORDERED: HYDR50TA13 PO (01:40)
[2019-07-23] MEDS ORDERED: METR-90 PO (01:40)
[2019-07-23] MEDS ORDERED: NICO-485 TD (01:40)
[2019-07-23] MEDS ORDERED: OXYC5TAB2 PO (01:40)
[2019-07-24] MEDS ORDERED: VANC250C3 PO (17:06)
== END 2019-06-05 15:40 | disposition home health service (06) | DRG 871 ==
LOC: ED 07:35 → EDIP 07:36 → ED 08:17 → 4EST 11:16 → DCLOUNGE 06-05 15:23
PROVIDERS: ADMIT Family Medicine; ATTEND Family Medicine
PROC: 0T9B70Z Drainage of Bladder with Drainage Device, Via Natural or Artificial Opening (ICD-10-PCS; principal; 2019-05-24)
PROC: 0DB98ZX Excision of Duodenum, Via Natural or Artificial Opening Endoscopic, Diagnostic (ICD-10-PCS; 2019-05-31)
PROC: 0DB68ZX Excision of Stomach, Via Natural or Artificial Opening Endoscopic, Diagnostic (ICD-10-PCS; 2019-05-31)
PROC: 0DB58ZX Excision of Esophagus, Via Natural or Artificial Opening Endoscopic, Diagnostic (ICD-10-PCS; 2019-05-31)
DX: A41.9 Sepsis, unspecified organism (principal); E43 Unspecified severe protein-calorie malnutrition; G93.41 Metabolic encephalopathy; K86.1 Other chronic pancreatitis; Z68.24 Body mass index [BMI] 24.0-24.9, adult; E87.6 Hypokalemia; E83.51 Hypocalcemia; K70.10 Alcoholic hepatitis without ascites; Z87.11 Personal history of peptic ulcer disease; K21.9 Gastro-esophageal reflux disease without esophagitis; G89.29 Other chronic pain; G47.00 Insomnia, unspecified; R73.9 Hyperglycemia, unspecified; K52.9 Noninfective gastroenteritis and colitis, unspecified; D53.9 Nutritional anemia, unspecified; D69.6 Thrombocytopenia, unspecified; E83.39 Other disorders of phosphorus metabolism; E83.42 Hypomagnesemia; E86.0 Dehydration; F10.20 Alcohol dependence, uncomplicated; F17.210 Nicotine dependence, cigarettes, uncomplicated; F22 Delusional disorders; F43.10 Post-traumatic stress disorder, unspecified; G62.9 Polyneuropathy, unspecified; I34.1 Nonrheumatic mitral (valve) prolapse; K27.9 Peptic ulcer, site unspecified, unspecified as acute or chronic, without hemorrhage or perforation; K29.70 Gastritis, unspecified, without bleeding; K31.9 Disease of stomach and duodenum, unspecified; K74.60 Unspecified cirrhosis of liver; K76.0 Fatty (change of) liver, not elsewhere classified; K83.8 Other specified diseases of biliary tract; M54.30 Sciatica, unspecified side; M79.7 Fibromyalgia; Z81.1 Family history of alcohol abuse and dependence; Z82.0 Family history of epilepsy and other diseases of the nervous system; Z86.19 Personal history of other infectious and parasitic diseases; Z88.2 Allergy status to sulfonamides; Z88.8 Allergy status to other drugs, medicaments and biological substances; Z88.6 Allergy status to analgesic agent; Z91.011 Allergy to milk products
CPT/HCPCS: 36415; 71045; 74177; 74181; 76700; 80048; 80053; 81001; 82140; 82272; 82330; 82378; 82438; 82533; 82542; 82607; 83036; 83540; 83550; 83605; 83690; 83735; 84100; 84145; 84302; 84439; 84443; 84481; 84484; 84999; 85025; 86301; 87040; 87046; 87086; 87324; 87328; 87329; 87427; 88305; 89055; 93005; 94640; 96365; 96375; 96376; 99291; G0378; J0696; J1650; J1885; J2405; J2704; J3480; J3486; J7070; J7613; P9047; Q0162; Q9967; C9113; J1630; J2060; J2270; J3475; J7030; J7040; J7120; Q0177

== ENCOUNTER 2019-06-17 15:15 | Inpatient (IN) | payer MEDICARE, MEDICAID ==
[~2019-06-17] VITALS: Ht 162.6 cm; Wt 83.0 kg
[2019-06-23 13:55] VITALS: BP 114/71
== END 2019-06-23 18:09 | DRG 432 ==
LOC: 4EST 17:11
PROVIDERS: ADMIT Hospitalist; ATTEND Hospitalist
PROC: 0F798DZ Dilation of Common Bile Duct with Intraluminal Device, Via Natural or Artificial Opening Endoscopic (ICD-10-PCS; principal; 2019-06-19)
PROC: BF111ZZ Fluoroscopy of Biliary and Pancreatic Ducts using Low Osmolar Contrast (ICD-10-PCS; 2019-06-19)
PROC: 0W9G3ZZ Drainage of Peritoneal Cavity, Percutaneous Approach (ICD-10-PCS; 2019-06-22)
DX: K70.11 Alcoholic hepatitis with ascites (principal); K83.1 Obstruction of bile duct; K85.90 Acute pancreatitis without necrosis or infection, unspecified; A04.72 Enterocolitis due to Clostridium difficile, not specified as recurrent; F10.239 Alcohol dependence with withdrawal, unspecified; D68.9 Coagulation defect, unspecified; E87.0 Hyperosmolality and hypernatremia; F11.20 Opioid dependence, uncomplicated; J90 Pleural effusion, not elsewhere classified; K86.1 Other chronic pancreatitis; K72.90 Hepatic failure, unspecified without coma; D53.9 Nutritional anemia, unspecified; D69.59 Other secondary thrombocytopenia; E83.42 Hypomagnesemia; F17.210 Nicotine dependence, cigarettes, uncomplicated; G62.9 Polyneuropathy, unspecified; Y90.1 Blood alcohol level of 20-39 mg/100 ml; F43.10 Post-traumatic stress disorder, unspecified; X58.XXXA Exposure to other specified factors, initial encounter; G89.29 Other chronic pain; K83.8 Other specified diseases of biliary tract; R13.10 Dysphagia, unspecified; S92.352A Displaced fracture of fifth metatarsal bone, left foot, initial encounter for closed fracture; I48.0 Paroxysmal atrial fibrillation; K21.9 Gastro-esophageal reflux disease without esophagitis; K25.9 Gastric ulcer, unspecified as acute or chronic, without hemorrhage or perforation; K58.9 Irritable bowel syndrome, unspecified; K76.0 Fatty (change of) liver, not elsewhere classified; M79.7 Fibromyalgia; R29.6 Repeated falls; Z76.5 Malingerer [conscious simulation]; Z79.899 Other long term (current) drug therapy; Z81.1 Family history of alcohol abuse and dependence; Z82.0 Family history of epilepsy and other diseases of the nervous system; Z87.11 Personal history of peptic ulcer disease; Z90.49 Acquired absence of other specified parts of digestive tract; Z98.51 Tubal ligation status; Z81.8 Family history of other mental and behavioral disorders; Y93.89 Activity, other specified; Y92.89 Other specified places as the place of occurrence of the external cause; Y99.8 Other external cause status; Z88.6 Allergy status to analgesic agent; Z88.2 Allergy status to sulfonamides; Z88.8 Allergy status to other drugs, medicaments and biological substances; Z91.011 Allergy to milk products; Z71.41 Alcohol abuse counseling and surveillance of alcoholic
CPT/HCPCS: 36415; 49083; 74181; 74328; 80053; 82140; 82607; 82962; 83690; 83735; 84100; 85025; 85610; 85730; 86850; 86900; 93005; 94640; G0378; J1100; J1650; J2405; J2704; J3010; J3370; J3411; J3475; J3480; J7070; J7613; P9047; 92523-GN; C1769; C1894; C2625; G0515-GN; J0330; J1940; J7121

== ENCOUNTER 2019-09-10 07:17 | Day surgery (SDC) | payer MEDICARE ==
[~2019-09-10] VITALS: Ht 162.6 cm; Wt 50.8 kg
[~2019-09-10 07:17] MED LIST: ACET325T26 PO; ACID1TAB7 PO; ALBU2.5V11 NEB; AMIT25PO14 PO; CALC1TAB68 PO; CHOL239. PO; DIPH1TAB6 PO; DIPH25CA61 PO; FAMO25PO2 PO; FOLI-17 PO; FURO-93 PO; FURO40TA6 PO; HALO0.5T PO; HYDR; HYDR-826 PO; HYDR10TA4 PO; HYDR50TA13 PO; IBUP-1221 PO; IBUP100T6 PO; LEVO500T8 PO; LOPE1TAB4 PO; METO1TAB31 PO; METO25TA35 PO; METO25TA91 PO; METR-90 PO; NICO-485 TD; NICO-487 TD; ONDA4TAB7 PO; OXYC5TAB2 PO; PANT20TA2 PO; PANT40TA3 PO; POTA20TA89 PO; POTA8CAP20 PO; PRED20TA PO; PRED5TAB19 PO; RANI150C PO; SPIR25TA PO; SUCR1ORA5 PO; SUCR1TAB PO; THIA100T67 PO; TRAM50TA2 PO; VANC1VIA3 PO; VANC250C3 PO
[2019-09-10] MEDS ORDERED: LACTATED RINGERS 1,000 ML IV SCH (08:44)
[2019-09-10 08:45] VITALS: BP 104/65
[2019-09-10] MEDS ORDERED: spironolactone PO (09:13)
[2019-09-10] MEDS ORDERED: lasix PO (09:13)
[2019-09-10] MEDS ORDERED: DIPH25CA61 PO (09:14)
[2019-09-10 10:03] LABS: BASOPHILS # (AUTO) 0.03 x10^3/uL (0-0.1); BASOPHILS % (AUTO) 0 % (0-1); EOSINOPHILS % (AUTO) 0 % (1-7); LYMPHOCYTES # (AUTO) 1.98 x10^3/uL (1-3.4); LYMPHOCYTES % (AUTO) 30 % (22-44); MD NO; MEAN CORPUSCULAR HEMOGLOBIN 34.1 pg (27.0-34.8); MEAN CORPUSCULAR HGB CONC 32.7 g/dL (32.4-35.8); MEAN CORPUSCULAR VOLUME 104.3 fL (80-100); MEAN PLATELET VOLUME 7.8 fL (7.4-10.4); MONOCYTES # (AUTO) 0.52 x10^3/uL (0.2-0.8); MONOCYTES % (AUTO) 8 % (2-9); NEUTROPHILS % (AUTO) 62 % (42-75); PLATELET COUNT 277 x10^3/uL (130-400); RED BLOOD COUNT 3.12 x10^6/uL (3.82-5.3); RED CELL DISTRIBUTION WIDTH 16.8 % (9.6-15.2)
[2019-09-10 10:12] LABS: ALANINE AMINOTRANSFERASE 16 U/L (12-78); ALBUMIN 3.1 g/dL (3.4-5.0); ANION GAP 6 mmol/L (5-15); CALCIUM 8.7 mg/dL (8.5-10.1); CHLORIDE 108 mmol/L (98-107); CREATININE 0.69 mg/dL (0.55-1.02)
[2019-09-10 10:14] LABS: ALKALINE PHOSPHATASE 148 U/L (45-117); BILIRUBIN,TOTAL 0.7 mg/dL (0.2-1.0); TOTAL PROTEIN 7.4 g/dL (6.4-8.2)
[2019-09-10] MEDS ORDERED: FENTANYL PF 100 MCG/2ML ONE ×3 (12:17→14:39)
[2019-09-10] MEDS ORDERED: PHENYLEPHRINE 10 MG/ML ONE (12:55)
[2019-09-10] MEDS ORDERED: ROCURONIUM 10MG/ML,5ML ONE (12:55)
[2019-09-10] MEDS ORDERED: PIPERACILLIN/TAZO/PMX 3.375GM 50 ML ONE (13:26)
[2019-09-10] MEDS ORDERED: ALBUTEROL/IPRATROPIUM 2.5MG/0.5MG, 3 ML NPPB PRN (13:30)
[2019-09-10] MEDS ORDERED: HYDROmorphone 2 MG/ML, 1ML IVPush PRN (13:30)
[2019-09-10] MEDS ORDERED: PROMETHAZINE 25 MG/ML, 1ML IV PRN (13:30)
[2019-09-10] MEDS ORDERED: MIDAZOLAM 1 MG/ML, 2ML IV PRN (13:30)
[2019-09-10] MEDS ORDERED: OXYcodone 5 MG/5 ML ORAL.SOL UDC PO PRN (13:30)
[2019-09-10] MEDS ORDERED: METOPROLOL 1 MG/ML, 5ML IV PRN (13:30)
[2019-09-10] MEDS ORDERED: MEPERIDINE/PF 25MG/ML,1ML IVPush PRN (13:30)
[2019-09-10] MEDS ORDERED: hydrALAzine 20 MG/ML, 1ML IV PRN (13:30)
[2019-09-10] MEDS ORDERED: PROPOFOL 10 MG/ML, 20ML ONE (14:08)
[2019-09-10] MEDS ORDERED: ONDANSETRON 2MG/ML, 2ML ONE (14:08)
[2019-09-10] MEDS ORDERED: SUCCINYLCHOLINE 20 MG/ML, 10ML ONE (14:08)
[2019-09-10] MEDS ORDERED: DEXAMETHASONE 4 MG/ML, 1ML ONE (14:08)
[2019-09-10] MEDS ORDERED: OXYcodone 5 MG/5 ML ORAL.SOL UDC ONE (14:39)
[2019-09-10] MEDS: FENTANYL PF 100 MCG/2ML IV PRN ×2 (14:48→14:54)
[2019-09-10] MEDS ORDERED: MEPERIDINE/PF 25MG/ML,1ML ONE (15:03)
== END 2019-09-10 16:15 | disposition home or self-care (01) ==
LOC: OUT 07:17
PROVIDERS: ATTEND Internal Medicine Geriatric Medicine
DX: R97.0 Elevated carcinoembryonic antigen [CEA] (principal); T85.520A Displacement of bile duct prosthesis, initial encounter; K80.50 Calculus of bile duct without cholangitis or cholecystitis without obstruction; J96.10 Chronic respiratory failure, unspecified whether with hypoxia or hypercapnia; F17.210 Nicotine dependence, cigarettes, uncomplicated; Z88.2 Allergy status to sulfonamides; Z88.8 Allergy status to other drugs, medicaments and biological substances; Z99.81 Dependence on supplemental oxygen; Y83.8 Other surgical procedures as the cause of abnormal reaction of the patient, or of later complication, without mention of misadventure at the time of the procedure
CPT/HCPCS: 36415; 43242; 43264; 74328; 80053; 85025; 88172; 88173; 93005; C1769; J0330; J1100; J2175; J2370; J2405; J2543; J2704; J3010; J7120